=== PATIENT | male | born 1940 | race Caucasian/White ===

== ENCOUNTER → 2018-10-25 09:19 | Outpatient (CLI) | payer MEDICARE, BC, SELFPAY ==
--- NOTE | 2018-10-25 09:26 | US_ITS ---
US abdomen complete HISTORY: ITS.REASON: CIRRHOSIS ORDERING PHYSICIAN: Barbra Chauhan PATIENT AGE: 78 years COMPARISON: None FINDINGS: PANCREAS:Unremarkable. No obvious mass or abnormal fluid collection. No ductal dilatation LIVER:There is heterogeneous echogenicity of the liver with irregularity of the hepatic margin consistent with cirrhosis. There is appropriate directional blood flow within the portal vein. The portal vein however is enlarged measuring up to 17 mm in diameter. There is a filling defect within the posterior aspect of the portal vein consistent with partial thrombosis of the portal vein.. RIGHT KIDNEY:Cortical thinning. Normal size and echogenicity. No hydronephrosis LEFT KIDNEY:Unremarkable.. No hydronephrosis. Normal size and echogenicity. GALLBLADDER: Gallbladder is distended containing stones and sludge. No gallbladder wall thickening or pericholecystic fluid is evident. AORTA:There is a 4 cm abdominal aortic aneurysm. SPLEEN:Enlarged at 15 cm ASCITES:None demonstrated. IMPRESSION: 1. Cirrhosis. 2. 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 3. Cyst in the gallbladder with cholelithiasis.
== END ==
PROVIDERS: PCP Family Medicine; Visit Provider Nurse Practitioner Acute Care
DX: K74.60 Unspecified cirrhosis of liver (principal)
CPT/HCPCS: 76700

== ENCOUNTER → 2019-11-23 14:44 | Outpatient (CLI) | payer MEDICARE, BC, SELFPAY ==
--- NOTE | 2019-11-23 14:59 | US_ITS ---
PROCEDURE: US TESTICULAR CLINICAL INDICATION: Right-sided testicular pain, recent hernia surgery COMPARISON: No exams were available for comparison FINDINGS: Right testicle is 4.7 x 2.4 x 2.4 cm. There is homogeneous echogenicity. Blood flow is present. No testicular mass apparent. There is irregular area of decreased echogenicity in the epididymal measuring 13 mm. There is a large right hydrocele. There is history of prior surgical removal of the left testicle. IMPRESSION: Large right hydrocele. Small complex epididymal cyst on the right. Unremarkable appearance of the right testicle Dictated by: Tim Baldwin MD 11/24/2019 16:48 Electronically signed by Tim Baldwin MD in [place] 11/24/2019 16:48
== END ==
PROVIDERS: PCP Family Medicine; Visit Provider Urology
DX: N50.811 Right testicular pain (principal)
CPT/HCPCS: 76870

== ENCOUNTER → 2020-03-16 11:50 | Outpatient (CLI) | payer MEDICARE, BC, SELFPAY ==
[2020-03-16 11:56] LABS: Adenovirus,PCR Not Detected (NotDetected); Bordetella Pertussis Not Detected (NotDetected); Chlamydophila Pneumoniae, PCR Not Detected (NotDetected); Coronavirus 19, PCR Not Detected (NotDetected); Coronavirus 229E Not Detected (NotDetected); Coronavirus NL63 Not Detected (NotDetected); Coronavirus OC43 Not Detected (NotDetected); Coronovirus HKU1,PCR Not Detected (NotDetected); Human Metapneumovirus Not Detected (NotDetected); Influenza A, PCR Not Detected (NotDetected); Influenza AH1, 2009 Not Detected (NotDetected); Influenza AH1, PCR Not Detected (NotDetected); Influenza AH3,PCR Not Detected (NotDetected); Influenza B, PCR Not Detected (NotDetected); Mycoplasma Pneumoniae, PCR Not Detected (NotDected); Parainfluenza 1, PCR Not Detected (NotDetected); Parainfluenza 2, PCR Not Detected (NotDetected); Parainfluenza 3, PCR Not Detected (NotDetected); Parainfluenza 4, PCR Not Detected (NotDetected); Respiratory Syncytial Virus Not Detected (NotDetected); Rhinovirus/Enterovirus Not Detected (NotDetected)
== END ==
PROVIDERS: Visit Provider Family Medicine
DX: Z03.818 Encounter for observation for suspected exposure to other biological agents ruled out (principal)
CPT/HCPCS: 87581; 87633; 87798; U0003

== ENCOUNTER → 2021-05-02 11:42 | Outpatient (CLI) | payer MEDICARE, BC, SELFPAY ==
--- NOTE | 2021-05-02 11:46 | CA_ITS ---
APPROVED REPORT EXAM: Comprehensive 2D, Doppler, and color-flow Echocardiogram Studio Operator: rTacy Curran CRT Ht: 5 ft 7 in Wt: 158lbs BSA: 1.83 BP: 142/82 mmHg Indications: Abnormal ECG, Shortness of Breath, Hyperlipidemia, Hypertension/HDD 2D Dimensions LVOT 2.08 cm (M/F) 1.5-2.5 LA Volume 54.50 mL LA Volume Index 29.80 mL/m2 (M/F) 16-34 M-Mode Dimensions RVDd 2.79 cm (0.9-2.6) LA Diam 3.92 cm (1.9-4.0) LVDd 6.25 cm (3.5-5.7) Ao Diam 4.28 cm (2.0-3.7) LVDs 5.47 cm (3.5-5.7) IVSd 1.57 cm (0.6-1.1) PWd 0.68 cm (0.6-1.1) EF (Teich) 26.30% FS 12.50% EDV (Teich) 197.60 mL TAPSE 2.53 (<1.7) ESV (Teich) 145.60 mL LV Diastology E Decel Time 293.00 (160-240 msec) E/A Ratio 0.98 MED E' 2.80 (< 7 cm/sec) MED A' 10.20 cm/s E'/MED E' Ratio 33.32 (>14) LAT E' 6.70 (<10 cm/sec) LAT A' 9.30 cm/s E/LAT E' Ratio 13.93 (>14) Aortic Valve LVOT Max 158.00 (70-110 cm/s) LVOT VTI 38.56 cm AoV Peak Shahbaz. 195.00 (50-130 cm/s) AI PHT 844.00 ms AO Peak GR. 15.20 mmHg AO Mean GR. 7.20 (<5 mmHg) AO VTI 41.63 (18-25 cm) CIELO (VTI) 3.15 (2.5-4.5 cm2) Mitral Valve MV A Velocity 95.00 (40-130 cm/s) E/A Ratio 0.98 MV Decel. Time 293.00 (160-240 ms) Pulmonary Valve PV Peak Velocity 158.00 (50-150 cm/s) Tricuspid Valve TR P. Velocity 275.00 cm/s RAP Estimate 10.00 mmHg RVSP 40.30 mmHg Left Ventricle Left atrium is moderately enlarged, left ventricle is mildly dilated, severe reduced left ventricular systolic function, visually estimated ejection fraction approximately 25%, there is marked hypokinesis involving the inferior wall, inferolateral and posterolateral wall. Diastolic parameters are inconclusive. Right Ventricle Right atrium and right ventricle are normal size and contractility. Aortic Valve Aortic valve is thickened and calcified without aortic stenosis, there is mild aortic insufficiency. Mitral Valve Mitral valve leaflets are minimally thickened, there is mild mitral regurgitation. Tricuspid Valve Tricuspid grossly normal, there is mild tricuspid regurgitation, calculated right ventricular systolic pressure is 40 mmHg. Pulmonic Valve Pulmonic valve is poorly visualized. Great Vessels Aortic root is normal size. Pericardium No significant pericardial effusion noted. Conclusion 1. Moderately enlarged left atrium, dilated left ventricle, severe reduced left ventricular systolic function, visually estimated ejection fraction 25% with multiple segmental wall motion abnormality described above, diastolic parameters are inconclusive. 2. Mild aortic, mild mitral and tricuspid regurgitation. 3. No significant pericardial effusion noted. Electronically signed by : Carson Roberson MD 05/03/2021 13:40:54
--- NOTE | 2021-05-02 11:48 | NM_ITS ---
APPROVED REPORT Exam: Nuclear Stress Test Indication: Abnormal EKG, SOB, Palpitations, HTN, High cholesterol Patient Location: Outpatient Stress Tech: Sasha Rivera [place] Tech:Jyotsna Hardwick ARRT RT(R)(N) Ht: 5 ft 7 in Wt: 160 lbs HR: 78 bpm BP: 130/73 mmHg BSA: 1.84 m2 BMI: 25.0 History: Abnormal EKG, SOB, Palpitations, HTN, High cholesterol Procedure: Patient received a 0.4 mg of intravenous Lexiscan, resting heart rate 78 bpm, resting blood pressure 130/73 mmHg, with Lexiscan maximum heart rate achived was 75 bpm which is Than 85 % of the maximum predicted heart rate and blood pressure was 144/76 mmHg. With Lexiscan, patient denied any complaint of chest pain. Electrocardiogram Resting electrocardiogram shows sinus rhythm with Lexiscan there is less than 1.[address] segment depression noted from the baseline EKG. The EKG portion of the Lexiscan is nondiagnostic. Cardiac Stress and Resting SPECT Images: Cardiac Stress and Resting SPECT images were obtained using technetium 99m Myoview 32.6 mCi stress and 10.27 mCi at rest. Gated SPECT for analysis of segmental wall motion and calculation of the ejection fraction also done, prone images were also obtained. Cardiac stress and resting SPECT images show severely reduced tracer activity in the large area involving the inferior inferolateral and posterolateral wall mostly in a fixed pattern consistent with area of extensive myocardial scarring with minimal vero-infarct ischemia. Computer derived ejection fraction is 28% with marked hypokinesis involving the inferior inferolateral and posterolateral wall. Right ventricle mildly enlarged with normal contractility. Conclusion: 1. The EKG portion of the Lexiscan is nondiagnostic. 2. Scintigraphic evidence of extensive myocardial scarring involving the inferior inferolateral and posterolateral wall with minimal vero-infarct ischemia. Computer derived ejection fraction is 28% with segmental wall motion abnormality described above, right ventricle is mildly enlarged with normal contractility, left ventricle is dilated both stress and rest. 3. Abnormal Lexiscan Myoview study. Electronically signed by : Carson Roberson MD 05/03/2021 11:11:43
--- NOTE | 2021-05-02 14:22 | CA_ITS ---
APPROVED REPORT Exam: Pharmacologic Technologist: Sasha Rivera, Ht: 5 ft 7 in Wt: 158 lbs BSA: 1.83 m2 HR: 78 bpm BP: 130/73 mmHg Medical History Medications: Allopurinol,,,,, Carvedilol,,,,, Furosemide,,,,, Ferrous-sulfate,,,,, Stress Test Details Test: LEXISCAN HR Resting HR: 75 bpm Max Heart Rate (APMHR): 138 bpm Max HR Achieved: 88 bpm Target HR (85% APMHR): 117 bpm % of APMHR: 63 Recovery HR: 78 bpm BP Resting BP: 130/73 mmHg Max BP: 150/70 mmHg Recovery BP: 144.0/66.0 mmHg ECG Resting ECG: NSR, 1degree AVB, freq PVC's in bigeminal pattern, poor R wave progression Clinical Exercise duration: 04:01 min Highest Stage Achieved: Stress ECG Conclusion Symptoms: None Arrhythmais/Ectopy: Frequent PVC's, Occ V.couplet, rare V. triplet. ST-T Changes: No significant changes. Conclusion: Non-dx Lexiscan stress. Myoview images reported separately. Electronically signed by : Carson Roberson MD 05/02/2021 14:57:35
--- NOTE | 2021-05-02 16:05 | HMH.ITSHM ---
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 []VITAMINS FUROSEMIDE IRON CARVEDILOL ALLOPURINOL
== END ==
PROVIDERS: PCP Family Medicine; Visit Provider Internal Medicine Cardiovascular Disease
DX: E78.5 Hyperlipidemia, unspecified (principal); I10 Essential (primary) hypertension; I49.3 Ventricular premature depolarization; I49.9 Cardiac arrhythmia, unspecified; R00.2 Palpitations; R60.0 Localized edema; R94.31 Abnormal electrocardiogram [ECG] [EKG]; Z87.19 Personal history of other diseases of the digestive system; Z87.891 Personal history of nicotine dependence
CPT/HCPCS: 78452; 93017; 93306; A9502; J2785

== ENCOUNTER → 2021-05-09 13:18 | Outpatient (CLI) | payer MEDICARE, BC, SELFPAY ==
[2021-05-09 13:50] LABS: Basophils % 0.5 % (0.1-2.0); Eosinophils # 0.3 K/mm3 (0.0-0.4); Eosinophils % 7.2 % (0.1-12.0); Hemoglobin 11.7 g/dL (14.1-18.0); Lymphocytes % 20.9 % (10-50); Mean Corpuscular HGB Conc 32.6 g/dL (31.8-35.4); Mean Corpuscular Hemoglobin 34.7 pg (27.0-31.2); Mean Corpuscular Volume 106.4 fl (80-94); Mean Platelet Volume 9.8 fl (7.4-10.4); Monocytes # 0.2 K/mm3 (0.1-1.0); Monocytes % 4.5 % (1.7-9.3); Neutrophils # 3.2 K/mm3 (1.8-7.8); Neutrophils % 66.9 % (37.0-80.0); Platelet Count 71 K/mm3 (142-424); Red Blood Count 3.38 M/mm3 (4.60-6.20); Red Cell Distribution Width 17.5 % (11.5-17.5); White Blood Count 4.8 K/mm3 (4.8-10.8)
[2021-05-09 13:57] LABS: INR 1.11 (0.9-1.1)
[2021-05-09 14:20] LABS: Alanine Aminotransferase 13 U/L (12-78); Albumin Level 3.6 g/dl (3.5-5.0); Alkaline Phosphatase 79 U/L (38-126); Anion Gap 11.9 mEq/L (5-15); Aspartate Amino Transferase 26 U/L (17-59); Bilirubin,Direct 0.4 mg/dl (0.0-0.4); Bilirubin,Total 1.4 mg/dl (0.2-1.3); Blood Urea Nitrogen 41 mg/dl (9-20); Calcium 8.7 mg/dl (8.4-10.2); Carbon Dioxide 22 mmol/L (22.0-30.0); Chloride 111 mmol/L (98-107); Chol/HDL Ratio 2.7 (1-3.5); Cholesterol 139 mg/dl (140-200); Estimated Glomerular Filt Rate 58 ml/min (>60); GFR (African American) 70 ML/MIN (>60); Glucose 87 mg/dl (74-100); HDL Cholesterol 51 mg/dl (40-60); Potassium 4.9 mmoL/L (3.5-5.1); Sodium 140 mmol/L (136-145); Total Protein,Serum 6.8 g/dl (6.3-8.2); Triglycerides 78 mg/dl (30-150); VLDL Cholesterol 16 mg/dL (0-40)
[2021-05-09 14:31] LABS: Direct LDL Cholesterol 62.36 mg/dL (100-129)
[2021-05-09 14:32] LABS: Free T4 (Free Thyroxine) 1.51 ng/dl (0.78-2.19)
[2021-05-09 14:50] LABS: Thyroid Stimulating Hormone 2.07 uIU/mL (0.465-4.68)
== END ==
PROVIDERS: Visit Provider Internal Medicine Cardiovascular Disease
DX: E78.5 Hyperlipidemia, unspecified (principal); I49.3 Ventricular premature depolarization; I49.9 Cardiac arrhythmia, unspecified; R00.2 Palpitations; R60.0 Localized edema; R94.31 Abnormal electrocardiogram [ECG] [EKG]; Z87.19 Personal history of other diseases of the digestive system; Z87.891 Personal history of nicotine dependence; I50.20 Unspecified systolic (congestive) heart failure; R93.1 Abnormal findings on diagnostic imaging of heart and coronary circulation; R94.30 Abnormal result of cardiovascular function study, unspecified; I11.0 Hypertensive heart disease with heart failure
CPT/HCPCS: 36415; 80048; 80061; 80076; 84439; 84443; 85025; 85610

== ENCOUNTER 2021-05-20 08:22 | Day surgery (SDC) | payer MEDICARE, BC, SELFPAY ==
[2021-05-20] VITALS (9 sets, daily range): BP systolic 106–156; BP diastolic 55–91; PULSE 62–81; RESP 17–20; TEMP 36.7; O2SAT 91–98; BMI 24.9
--- NOTE | 2021-05-20 07:11 | IR_ITS ---
APPROVED REPORT Patient Location: Outpatient PROCEDURES Left heart catheterization Left ventriculogram Selective coronary angiogram INDICATION Abnormal Myoview, Systolic congestive heart failure ejection fraction 28%, Cardiomyopathy, Informed consent was obtained prior to the procedure. COMPLICATIONS NONE Estimated Blood Loss: LESS THAN 10 ML TECHNIQUE One percent lidocaine used to anesthetize the right anterior aspect of the wrist. The right radial artery was accessed via the Seldinger technique. A 6 Spanish sheath was placed in the right radial artery. 2.5 mg of verapamil, 800 mcg of nitroglycerin, 1mg Lidocaine and 5000 U Heparin were given through the arterial sheath. The trap catheter was also used to perform left heart catheterization, left ventriculogram and selective coronary angiogram. At the end of the procedure the sheath was removed good hemostasis was achieved using Traclet band, patient was transferred to the postop holding area in stable condition. ANGIOGRAPHIC RESULTS The left main artery Normal The left anterior descending artery Proximally normal with a mid vessel telescopic 30% stenosis The circumflex artery Nondominant with mild luminal irregularities The right coronary artery Large dominant with mild diffuse 10% luminal irregularities The YU ventriculogram reveals Dilated global hypokinesis ejection fraction 25% The left ventricular end-diastolic pressure 20 mmHg IMPRESSION Mild to moderate nonflow limiting coronary disease involving mid LAD Multiple PVCs in the setting of severe LV dysfunction PLAN 1. Medical management for coronary artery disease 2. Recommend EP evaluation and possible EP study to consider ablating the numerous PVCs which may be contributing to the cardiomyopathy. 3. Consider LifeVest while awaiting EP evaluation and EP study 4. Standard therapy for systolic heart failure Electronically signed by : Elvis Fairbanks MD 05/20/2021 11:29:09
[2021-05-20 09:07] LABS: Coronavirus 19, PCR Not Detected (NotDetected); Influenza A, PCR Not Detected (NotDetected); Influenza B, PCR Not Detected (NotDetected)
[2021-05-20 09:12] LABS: Basophils # 0.1 K/mm3 (0-0.2); Basophils % 0.9 % (0.1-2.0); Eosinophils # 0.4 K/mm3 (0.0-0.4); Eosinophils % 6.5 % (0.1-12.0); Hematocrit 39.2 % (42.0-52.0); Hemoglobin 12.4 g/dL (14.1-18.0); Lymphocytes # 1.5 K/mm3 (0.7-4.5); Lymphocytes % 23.8 % (10-50); Mean Corpuscular HGB Conc 31.6 g/dL (31.8-35.4); Mean Platelet Volume 10.7 fl (7.4-10.4); Monocytes # 0.3 K/mm3 (0.1-1.0); Monocytes % 4.9 % (1.7-9.3); Neutrophils # 4.1 K/mm3 (1.8-7.8); Neutrophils % 63.9 % (37.0-80.0); Platelet Count 100 K/mm3 (142-424); Red Blood Count 3.53 M/mm3 (4.60-6.20); White Blood Count 6.4 K/mm3 (4.8-10.8)
[2021-05-20 09:15] LABS: Chloride 111 mmol/L (98-107); Potassium 4.4 mmoL/L (3.5-5.1); Sodium 140 mmol/L (136-145)
[2021-05-20 09:18] LABS: Blood Urea Nitrogen 38 mg/dl (9-20); Creatinine Clearance Estimated 45 mL/min (50-200); Estimated Glomerular Filt Rate 53 ml/min (>60); GFR (African American) 64 ML/MIN (>60)
[2021-05-20 09:19] LABS: Anion Gap 12.4 mEq/L (5-15); Calcium 9.1 mg/dl (8.4-10.2); Carbon Dioxide 21 mmol/L (22.0-30.0); Glucose 94 mg/dl (74-100)
== END 2021-05-20 15:04 | disposition home or self-care (01) ==
LOC: CATHLAB 08:23
PROVIDERS: PCP Family Medicine; Visit Provider Internal Medicine
DX: E78.5 Hyperlipidemia, unspecified (principal); I11.0 Hypertensive heart disease with heart failure; I50.21 Acute systolic (congestive) heart failure; R00.2 Palpitations; R93.1 Abnormal findings on diagnostic imaging of heart and coronary circulation; R94.30 Abnormal result of cardiovascular function study, unspecified; R94.31 Abnormal electrocardiogram [ECG] [EKG]; K74.69 Other cirrhosis of liver; Z82.49 Family history of ischemic heart disease and other diseases of the circulatory system; Z79.899 Other long term (current) drug therapy; Z20.822 Contact with and (suspected) exposure to COVID-19
CPT/HCPCS: 80048; 85025; 93458; 99152; C1725; C1769; J1644; Q9967; U0003

== ENCOUNTER → 2021-07-12 09:02 | Outpatient (CLI) | payer MEDICARE, BC, SELFPAY ==
--- NOTE | 2021-07-12 09:04 | CA_ITS ---
APPROVED REPORT EXAM: Comprehensive 2D, Doppler, and color-flow Echocardiogram Certified Medical Coder: Eliz Perez RDCS Ht: 5 ft 7 in Wt: 156lbs BSA: 1.82 BP: 5/7 mmHg Indications: EF CHECK M-Mode Dimensions RVDd 2.93 cm (0.9-2.6) LVDd 6.90 cm (3.5-5.7) LVDs 6.03 cm (3.5-5.7) IVSd 0.70 cm (0.6-1.1) PWd 0.63 cm (0.6-1.1) EF (Teich) 26.40% FS 12.60% EDV (Teich) 247.30 mL ESV (Teich) 182.10 mL Conclusion 1. Limited echocardiogram was obtained to evaluate left ventricular systolic function. 2. Left ventricle is normal size, mild concentric left ventricular hypertrophy, visually estimated ejection fraction is approximately 35 to 40%. Left ventricle is globally hypokinetic. 3. No significant pericardial effusion noted. Electronically signed by : Carson Roberson MD 07/12/2021 11:58:27
== END ==
PROVIDERS: PCP Family Medicine; Visit Provider Internal Medicine Cardiovascular Disease
DX: I25.10 Atherosclerotic heart disease of native coronary artery without angina pectoris (principal); I50.20 Unspecified systolic (congestive) heart failure
CPT/HCPCS: 93308

== ENCOUNTER → 2021-09-06 12:06 | Outpatient (CLI) | payer MEDICARE, BC, SELFPAY ==
--- NOTE | 2021-09-06 12:28 | XR_ITS ---
PROCEDURE: XR CHEST PORTABLE CLINICAL HISTORY: COVID TESTING COMPARISON: CR CXR CHEST(2 VIEWS-NOT PORTABLE) from 07/30/[address] ABD W/ CONTRAST from 10/07/2016 FINDINGS: The cardiomediastinal silhouette and pulmonary vascularity are within normal limits. The lungs are clear without infiltrates, suspicious nodules, or pleural effusions. There are degenerative changes of the shoulders. And irregular area of increased density is present the in the left upper quadrant medially etiology indeterminate. IMPRESSION: No acute findings. Dictated by: Tim Baldwin MD 09/06/2021 13:31 Tim Baldwin MD in [place] 09/06/2021 13:31
[2021-09-06 13:39] LABS: Basophils % 0.6 % (0.1-2.0); Eosinophils # 0.2 K/mm3 (0.0-0.4); Eosinophils % 4.2 % (0.1-12.0); Hematocrit 40.7 % (42.0-52.0); Hemoglobin 12.7 g/dL (14.1-18.0); Lymphocytes # 0.8 K/mm3 (0.7-4.5); Lymphocytes % 19.5 % (10-50); Mean Corpuscular HGB Conc 31.2 g/dL (31.8-35.4); Mean Corpuscular Hemoglobin 33.4 pg (27.0-31.2); Mean Corpuscular Volume 107.1 fl (80-94); Mean Platelet Volume 9.4 fl (7.4-10.4); Monocytes # 0.3 K/mm3 (0.1-1.0); Monocytes % 6.3 % (1.7-9.3); Neutrophils % 69.4 % (37.0-80.0); Platelet Count 104 K/mm3 (142-424); Red Cell Distribution Width 16.3 % (11.5-17.5); White Blood Count 4.3 K/mm3 (4.8-10.8)
== END ==
PROVIDERS: PCP Family Medicine; Visit Provider Nurse Practitioner
DX: U07.1 COVID-19 (principal)
CPT/HCPCS: 36415; 71045; 85025; 87275; 87276; C9803; U0003; U0005

== ENCOUNTER → 2021-11-12 10:23 | Outpatient (CLI) | payer MEDICARE, BC, SELFPAY ==
--- NOTE | 2021-11-12 | CA_ITS ---
APPROVED REPORT EXAM: Comprehensive 2D, Doppler, and color-flow Echocardiogram Rn Prior Authorization: Masha Flores, RCS, RVS Ht: 5 ft 7 in Wt: 162lbs BSA: 1.85 BP: 123/82 mmHg Indications: Dilated CM last EF35-40%-07/18, CAD, SOA,HTN 2D Dimensions IVSd 1.03 cm M: 0.6-1.2 LVEF (Visual) 52.40 % PWd 0.93 cm M: 0.6 - 1.2 LA Volume 73.30 mL LVDd 6.63 cm M: 4.2 - 5.9 LA Volume Index 39.62 mL/m2 (M/F) 16-34 LVDs 4.80 cm M: 2.5 - 4.0 Aortic Root 4.04 cm M: 3.1 - 3.7 Left Atrium 5.43 cm M: 3.0 - 4.0 LVOT 2.08 cm (M/F) 1.5-2.5 M-Mode Dimensions RVDd 3.26 cm (0.9-2.6) LA Diam 4.47 cm (1.9-4.0) LVDd 6.74 cm (3.5-5.7) Ao Diam 3.96 cm (2.0-3.7) LVDs 5.15 cm (3.5-5.7) IVSd 1.01 cm (0.6-1.1) PWd 1.01 cm (0.6-1.1) EF (Teich) 46.00% EPSs 1.86 cm FS 23.60% EDV (Teich) 234.50 mL TAPSE 2.29 (<1.7) ESV (Teich) 126.60 mL LV Diastology E Decel Time 250.00 (160-240 msec) E/A Ratio 0.69 MED E' 3.70 (< 7 cm/sec) MED A' 7.70 cm/s E'/MED E' Ratio 16.68 (>14) LAT E' 7.60 (<10 cm/sec) LAT A' 10.80 cm/s E/LAT E' Ratio 8.12 (>14) Aortic Valve LVOT Max 79.00 (70-110 cm/s) LVOT VTI 19.22 cm AoV Peak Shahbaz. 179.00 (50-130 cm/s) AI PHT 844.00 ms AO Peak GR. 12.80 mmHg AO Mean GR. 7.40 (<5 mmHg) AO VTI 41.30 (18-25 cm) CIELO (VTI) 1.58 (2.5-4.5 cm2) Mitral Valve MV A Velocity 89.00 (40-130 cm/s) E/A Ratio 0.69 MV Decel. Time 250.00 (160-240 ms) MV Mean Gr. 1.40 (<2mmHg) MV PHT 63.00 ms Pulmonary Valve PV Peak Velocity 124.00 (50-150 cm/s) Tricuspid Valve TR P. Velocity 265.00 cm/s RAP Estimate 10.00 mmHg RVSP 38.00 mmHg Left Ventricle Left atrium is mildly enlarged, left ventricle is normal size, mild concentric left ventricular hypertrophy, visually estimated ejection fraction approximately 35 to 40%, left ventricle appears to be globally hypokinetic. Superimposed segmental wall motion abnormalities cannot be excluded. Grade 1 diastolic dysfunction seen without tissue Doppler evidence of raise left atrial pressure. Right Ventricle Right atrium and right ventricular normal size and contractility. Aortic Valve Aortic valve is thickened and calcified without aortic stenosis, there is moderate aortic insufficiency. Mitral Valve Mitral valve is minimally thickened, there is mild mitral regurgitation. Tricuspid Valve Tricuspid grossly normal, there is mild tricuspid regurgitation, calculated right ventricular systolic pressure 38 mmHg. Pulmonic Valve Pulmonic valve is poorly visualized. Great Vessels Aortic root is normal size. Inferior vena cava is normal size with normal inspiratory collapse. Pericardium No significant pericardial effusion. Conclusion 1. Mildly enlarged left atrium, normal left ventricular size, mild concentric left ventricular hypertrophy, visually estimated ejection fraction 35 to 40% left ventricle is globally hypokinetic, superimposed segmental wall motion abnormality cannot be excluded. Grade 1 diastolic dysfunction without tissue Doppler evidence of left atrial pressure. 2. Thickened and calcified aortic valve without Doppler evidence of aortic stenosis, there is moderate aortic insufficiency. 3. Mild mitral and tricuspid regurgitation, calculated right ventricular systolic pressure 38 mmHg. 4. Inferior vena cava normal size with normal inspiratory collapse. Electronically signed by
== END ==
PROVIDERS: PCP Family Medicine; Visit Provider Internal Medicine Cardiovascular Disease
DX: I50.20 Unspecified systolic (congestive) heart failure (principal); R06.02 Shortness of breath
CPT/HCPCS: 93306

== ENCOUNTER → 2021-11-18 09:50 | Outpatient (CLI) | payer MEDICARE, BC, SELFPAY | PROVIDERS: PCP Family Medicine; Visit Provider Nurse Practitioner | DX: Z20.822 Contact with and (suspected) exposure to COVID-19 (principal) | CPT/HCPCS: C9803; U0003; U0005 ==

== ENCOUNTER → 2021-11-28 09:41 | Outpatient (CLI) | payer MEDICARE, BC, SELFPAY ==
[2021-11-28 10:27] LABS: Basophils # 0.1 K/mm3 (0-0.2); Basophils % 1.6 % (0.1-2.0); Eosinophils # 0.1 K/mm3 (0.0-0.4); Eosinophils % 4.8 % (0.1-12.0); Hematocrit 39.9 % (42.0-52.0); Hemoglobin 12.4 g/dL (14.1-18.0); Lymphocytes # 0.5 K/mm3 (0.7-4.5); Lymphocytes % 16.7 % (10-50); Mean Platelet Volume 10.1 fl (7.4-10.4); Monocytes # 0.2 K/mm3 (0.1-1.0); Monocytes % 7.4 % (1.7-9.3); Neutrophils % 69.6 % (37.0-80.0); Platelet Count 77 K/mm3 (142-424); Red Blood Count 3.53 M/mm3 (4.60-6.20); Red Cell Distribution Width 17.5 % (11.5-17.5); White Blood Count 2.9 K/mm3 (4.8-10.8)
[2021-11-28 11:06] LABS: Chloride 104 mmol/L (98-107)
[2021-11-28 11:07] LABS: Potassium 3.7 mmoL/L (3.5-5.1); Sodium 134 mmol/L (136-145)
[2021-11-28 11:09] LABS: Alanine Aminotransferase 18 U/L (12-78); Albumin Level 3.2 g/dl (3.5-5.0); Alkaline Phosphatase 87 U/L (38-126); Anion Gap 9.7 mEq/L (5-15); Aspartate Amino Transferase 33 U/L (17-59); Bilirubin,Total 1.7 mg/dl (0.2-1.3); Blood Urea Nitrogen 19 mg/dl (9-20); Carbon Dioxide 24 mmol/L (22.0-30.0); Estimated Glomerular Filt Rate 72 ml/min (>60); GFR (African American) 87 ML/MIN (>60); Globulin 3.4 g/dL (1.3-3.2); Total Protein,Serum 6.6 g/dl (6.3-8.2)
[2021-11-28 11:10] LABS: Albumin/Globulin Ratio 0.9 (1.1-1.8); Calcium 7.9 mg/dl (8.4-10.2); Glucose 117 mg/dl (74-100)
== END ==
PROVIDERS: Visit Provider Family Medicine
DX: K52.9 Noninfective gastroenteritis and colitis, unspecified (principal)
CPT/HCPCS: 36415; 80053; 85025

== ENCOUNTER → 2022-06-06 14:05 | Outpatient (CLI) | payer MEDICARE, BC, SELFPAY ==
[2022-06-06 15:19] LABS: Anion Gap 10.5 mEq/L (5-15); Blood Urea Nitrogen 31 mg/dl (9-20); Calcium 8.8 mg/dl (8.4-10.2); Carbon Dioxide 25 mmol/L (22.0-30.0); Chloride 108 mmol/L (98-107); Estimated Glomerular Filt Rate 58 ml/min (>60); GFR (African American) 70 ML/MIN (>60); Glucose 87 mg/dl (74-100); Potassium 4.5 mmoL/L (3.5-5.1); Sodium 139 mmol/L (136-145)
[2022-06-06 15:27] LABS: NT Pro Brain Natriuretic Pep. 4030 pg/mL (0-450)
[2022-06-06 15:33] LABS: Basophils % 0.5 % (0.1-2.0); Eosinophils # 0.2 K/mm3 (0.0-0.4); Eosinophils % 3.3 % (0.1-12.0); Hematocrit 40.6 % (42.0-52.0); Hemoglobin 11.7 g/dL (14.1-18.0); Lymphocytes % 19.9 % (10-50); Mean Corpuscular HGB Conc 28.9 g/dL (31.8-35.4); Mean Corpuscular Hemoglobin 33.3 pg (27.0-31.2); Mean Corpuscular Volume 115.2 fl (80-94); Mean Platelet Volume 8.9 fl (7.4-10.4); Monocytes # 0.4 K/mm3 (0.1-1.0); Monocytes % 7.2 % (1.7-9.3); Neutrophils # 3.6 K/mm3 (1.8-7.8); Platelet Count 95 K/mm3 (142-424); Red Blood Count 3.52 M/mm3 (4.60-6.20); Red Cell Distribution Width 16.2 % (11.5-17.5); White Blood Count 5.2 K/mm3 (4.8-10.8)
== END ==
PROVIDERS: PCP Family Medicine; Visit Provider Internal Medicine Cardiovascular Disease
DX: E78.2 Mixed hyperlipidemia (principal); I25.10 Atherosclerotic heart disease of native coronary artery without angina pectoris; I50.20 Unspecified systolic (congestive) heart failure; I63.9 Cerebral infarction, unspecified; R06.02 Shortness of breath; R94.31 Abnormal electrocardiogram [ECG] [EKG]; I11.0 Hypertensive heart disease with heart failure
CPT/HCPCS: 36415; 80048; 83880; 85025

== ENCOUNTER → 2022-06-26 10:45 | Outpatient (CLI) | payer MEDICARE, BC, SELFPAY ==
--- NOTE | 2022-06-26 10:46 | CA_ITS ---
APPROVED REPORT EXAM: Comprehensive 2D, Doppler, and color-flow Echocardiogram Commutator V Ring Assembler: Masha Flores, RCS, RVS Ht: 5 ft 7 in Wt: 157lbs BSA: 1.82 BP: 143/81 mmHg Rhythm: Irregular Indications: Dilated CMlast EF 35-40%, CHF, SOB, HTN, HLD,Ex-smoker, Palpitaitons 2D Dimensions IVSd 1.06 cm LVEF (Visual) 35.00 % PWd 0.78 cm LA Volume 139.80 mL LVDd 6.68 cm LA Volume Index 76.80 mL/m2 (M/F) 16-34 LVDs 5.42 cm Aortic Root 3.91 cm Left Atrium 3.44 cm LVOT 2.04 cm (M/F) 1.5-2.5 M-Mode Dimensions RVDd 3.34 cm (0.9-2.6) LA Diam 4.90 cm (1.9-4.0) LVDd 6.09 cm (3.5-5.7) Ao Diam 3.75 cm (2.0-3.7) LVDs 5.04 cm (3.5-5.7) IVSd 1.34 cm (0.6-1.1) PWd 1.04 cm (0.6-1.1) EF (Teich) 35.30% EPSs 1.58 cm FS 17.20% EDV (Teich) 186.20 mL TAPSE 2.20 (<1.7) ESV (Teich) 120.50 mL LV Diastology E Decel Time 333.00 (160-240 msec) E/A Ratio 0.88 MED E' 3.30 (< 7 cm/sec) MED A' 6.70 cm/s E'/MED E' Ratio 22.09 (>14) Aortic Valve LVOT Max 70.00 (70-110 cm/s) LVOT VTI 15.51 cm AoV Peak Shahbaz. 210.00 (50-130 cm/s) AI PHT 583.00 ms AO Peak GR. 17.90 mmHg AO Mean GR. 8.30 (<5 mmHg) AO VTI 44.63 (18-25 cm) CIELO (VTI) 1.14 (2.5-4.5 cm2) Mitral Valve MV A Velocity 83.00 (40-130 cm/s) E/A Ratio 0.88 MV Decel. Time 333.00 (160-240 ms) Pulmonary Valve PV Peak Velocity 105.00 (50-150 cm/s) DC End VMAX 160.00 cm/s Tricuspid Valve TR P. Velocity 399.00 cm/s RAP Estimate 10.00 mmHg RVSP 73.80 mmHg Left Ventricle Left atrium is mildly enlarged, left ventricle is mildly dilated, reduced left ventricular systolic function, estimated ejection fraction 30 to 35% left ventricle is globally hypokinetic, grade 1 diastolic dysfunction seen with tissue Doppler evidence of a left atrial pressure. Right Ventricle Right atrium and right ventricle are mildly enlarged with normal contractility. Aortic Valve Aortic valve is thickened and calcified without aortic stenosis, there is mild aortic insufficiency. Mitral Valve Mitral valve leaflets are minimally thickened, there is moderate mitral regurgitation. Tricuspid Valve Tricuspid valve is grossly normal, there is moderate tricuspid regurgitation, calculated right ventricular systolic pressure is 73 mmHg. Pulmonic Valve Pulmonic valve is poorly visualized. Great Vessels Aortic root is normal size. Inferior vena cava is dilated without significant inspiratory collapse. Pericardium No significant pericardial effusion noted. Conclusion 1. Biatrial enlargement, dilated left ventricle, estimated ejection fraction 30 to 35% left ventricle is globally hypokinetic. Grade 1 diastolic dysfunction seen with tissue Doppler evidence of raise left atrial pressure. 2. Mildly enlarged right ventricle with normal contractility. 3. Thickened and calcified aortic valve without aortic stenosis there is mild aortic insufficiency. 4. Moderate mitral and tricuspid regurgitation, calculated right ventricular systolic pressure is 73 mmHg. 5. No significant pericardial effusion noted. 6. Inferior vena cava is mildly dilated without significant inspiratory collapse. Electronically signed by : Carson Roberson MD 06/27/2022 14:33:01
== END ==
PROVIDERS: PCP Family Medicine; Visit Provider Physician Assistant
DX: E78.2 Mixed hyperlipidemia (principal); I11.0 Hypertensive heart disease with heart failure; I25.10 Atherosclerotic heart disease of native coronary artery without angina pectoris; I50.20 Unspecified systolic (congestive) heart failure; R00.2 Palpitations; R06.02 Shortness of breath; R94.31 Abnormal electrocardiogram [ECG] [EKG]; Z87.891 Personal history of nicotine dependence
CPT/HCPCS: 93306

== ENCOUNTER → 2022-06-30 14:05 | Outpatient (CLI) | payer MEDICARE, BC, SELFPAY ==
[2022-06-30 15:51] LABS: Chloride 105 mmol/L (98-107); Potassium 4.2 mmoL/L (3.5-5.1); Sodium 139 mmol/L (136-145)
[2022-06-30 16:30] LABS: Anion Gap 13.2 mEq/L (5-15); Blood Urea Nitrogen 45 mg/dl (9-20); Calcium 8.7 mg/dl (8.4-10.2); Carbon Dioxide 25 mmol/L (22.0-30.0); Estimated Glomerular Filt Rate 58 ml/min (>60); GFR (African American) 70 ML/MIN (>60); Glucose 186 mg/dl (74-100)
[2022-07-01 09:31] LABS: NT Pro Brain Natriuretic Pep. 2620 pg/mL (0-450)
== END ==
PROVIDERS: PCP Family Medicine; Visit Provider Physician Assistant
DX: E78.2 Mixed hyperlipidemia (principal); I11.0 Hypertensive heart disease with heart failure; I25.10 Atherosclerotic heart disease of native coronary artery without angina pectoris; I50.20 Unspecified systolic (congestive) heart failure; R06.02 Shortness of breath; R94.31 Abnormal electrocardiogram [ECG] [EKG]; Z87.891 Personal history of nicotine dependence
CPT/HCPCS: 36415; 80048; 83880

== ENCOUNTER → 2022-08-01 11:29 | Outpatient (CLI) | payer MEDICARE, BC, SELFPAY ==
[2022-07-31 17:55] LABS: Basophils # 0.1 K/mm3 (0-0.2); Basophils % 1.1 % (0.1-2.0); Eosinophils # 0.3 K/mm3 (0.0-0.4); Eosinophils % 7.1 % (0.1-12.0); Hematocrit 38.8 % (42.0-52.0); Hemoglobin 12.1 g/dL (14.1-18.0); Lymphocytes # 1.3 K/mm3 (0.7-4.5); Lymphocytes % 28.9 % (10-50); Mean Corpuscular HGB Conc 31.2 g/dL (31.8-35.4); Mean Corpuscular Hemoglobin 35.5 pg (27.0-31.2); Mean Platelet Volume 12.7 fl (7.4-10.4); Monocytes # 0.3 K/mm3 (0.1-1.0); Monocytes % 7.6 % (1.7-9.3); Neutrophils # 2.5 K/mm3 (1.8-7.8); Neutrophils % 55.4 % (37.0-80.0); Platelet Count 70 K/mm3 (142-424); Red Blood Count 3.41 M/mm3 (4.60-6.20); Red Cell Distribution Width 16.7 % (11.5-17.5); White Blood Count 4.4 K/mm3 (4.8-10.8)
[2022-07-31 18:01] LABS: Chol/HDL Ratio 2.7 (1-3.5); Cholesterol 132 mg/dl (140-200); HDL Cholesterol 49 mg/dl (40-60); Triglycerides 75 mg/dl (30-150); Uric Acid 3.9 mg/dl (3.5-8.5); VLDL Cholesterol 15 mg/dL (0-40)
[2022-07-31 18:11] LABS: NT Pro Brain Natriuretic Pep. 994 pg/mL (0-450)
[2022-07-31 18:13] LABS: Direct LDL Cholesterol 54.77 mg/dL (100-129)
[2022-07-31 18:32] LABS: Thyroid Stimulating Hormone 2.07 uIU/mL (0.465-4.68)
[2022-07-31 18:52] LABS: Vitamin B12 887 pg/mL (239-931)
[2022-07-31 19:43] LABS: 25-OH Vitamin D, Total 47.6 ng/mL (30-100)
[2022-08-01 12:11] LABS: INR 1.26 (0.9-1.1); Prothrombin Time 13.4 seconds (10.1-12.5)
[2022-08-02 08:16] LABS: AFP, Tumor Marker <0.9 ng/mL (0.0-6.4)
== END ==
PROVIDERS: PCP Nurse Practitioner; Visit Provider Nurse Practitioner
DX: E78.2 Mixed hyperlipidemia (principal); I25.10 Atherosclerotic heart disease of native coronary artery without angina pectoris; R06.02 Shortness of breath; E79.0 Hyperuricemia without signs of inflammatory arthritis and tophaceous disease; I10 Essential (primary) hypertension; G24.9 Dystonia, unspecified; K74.69 Other cirrhosis of liver
CPT/HCPCS: 36415; 80061; 82105; 82306; 82607; 83880; 84443; 84550; 85025; 85610

== ENCOUNTER → 2022-08-27 10:02 | Outpatient (CLI) | payer MEDICARE, BC, SELFPAY ==
--- NOTE | 2022-08-27 10:09 | CA_ITS ---
APPROVED REPORT EXAM: Comprehensive 2D, Doppler, and color-flow Echocardiogram Inspector Open Die: Masha Flores, RCS, RVS Ht: 5 ft 7 in Wt: 149lbs BSA: 1.78 BP: 100/64 mmHg Rhythm: Bradycardia Indications: Cardiac arryhtmia, WONG, Palpitations, PHTN, CAD, Hx-CHF, AI, MR, TR, PI 2D Dimensions IVSd 0.91 cm LVEF (Visual) 35.50 % PWd 1.04 cm LVDd 5.89 cm LVDs 4.87 cm Aortic Root 3.64 cm Left Atrium 3.25 cm LVOT 2.16 cm (M/F) 1.5-2.5 M-Mode Dimensions RVDd 2.66 cm (0.9-2.6) LA Diam 3.83 cm (1.9-4.0) LVDd 6.05 cm (3.5-5.7) Ao Diam 3.79 cm (2.0-3.7) LVDs 4.48 cm (3.5-5.7) IVSd 1.13 cm (0.6-1.1) PWd 1.05 cm (0.6-1.1) EF (Teich) 50.10% EPSs 2.10 cm FS 26.00% EDV (Teich) 183.40 mL TAPSE 2.42 (<1.7) ESV (Teich) 91.50 mL LV Diastology E Decel Time 297.00 (160-240 msec) E/A Ratio 0.68 MED E' 3.80 (< 7 cm/sec) MED A' 6.70 cm/s E'/MED E' Ratio 16.34 (>14) LAT E' 8.50 (<10 cm/sec) LAT A' 9.30 cm/s E/LAT E' Ratio 7.31 (>14) Aortic Valve AoV Peak Shahbaz. 237.00 (50-130 cm/s) AI PHT 944.00 ms AO Peak GR. 22.50 mmHg AO Mean GR. 11.40 (<5 mmHg) AO VTI 49.50 (18-25 cm) Mitral Valve MV A Velocity 92.00 (40-130 cm/s) E/A Ratio 0.68 MV Decel. Time 297.00 (160-240 ms) Pulmonary Valve PV Peak Velocity 119.00 (50-150 cm/s) ND End VMAX 212.00 cm/s Tricuspid Valve TR P. Velocity 314.00 cm/s RAP Estimate 10.00 mmHg RVSP 49.50 mmHg Left Ventricle Left atrium is mildly enlarged, left ventricle is normal size mild concentric left ventricular hypertrophy, estimated ejection fraction 40 to 45%, there is abnormal septal motion. Diastolic parameters are inconclusive. Right Ventricle Right atrium and right ventricle are mildly enlarged with normal contractility. Aortic Valve Aortic valve is thickened and calcified without aortic stenosis, there is mild aortic insufficiency. Mitral Valve Mitral valve is grossly normal, there is mild mitral regurgitation. Tricuspid Valve Tricuspid valve grossly normal, there is mild tricuspid regurgitation, calculated right ventricular systolic pressure is 49 mmHg. Pulmonic Valve Pulmonic valve is poorly visualized. Great Vessels Aortic root is normal size. Inferior vena cava is poorly visualized. 1. Mild biatrial enlargement, normal left ventricular size, Pericardium No significant pericardial effusion noted. Conclusion 1. Mild biatrial enlargement, normal left ventricular size, mild concentric left ventricular hypertrophy, estimated ejection fraction 40 to 45% with no regional wall motion abnormality, diastolic parameters are inconclusive. 2. Mildly enlarged right ventricle with normal contractility. 3. Mild aortic, mild mitral and tricuspid regurgitation, calculated right ventricular systolic pressure 49 mmHg. 4. No significant pericardial effusion. 5. Inferior vena cava is poorly visualized. Electronically signed by : Carson Roberson MD 08/29/2022 10:54:28
== END ==
PROVIDERS: PCP Nurse Practitioner; Visit Provider Internal Medicine Cardiovascular Disease
DX: E78.2 Mixed hyperlipidemia (principal); I25.10 Atherosclerotic heart disease of native coronary artery without angina pectoris; I50.20 Unspecified systolic (congestive) heart failure; R06.02 Shortness of breath; R94.31 Abnormal electrocardiogram [ECG] [EKG]; I11.0 Hypertensive heart disease with heart failure
CPT/HCPCS: 93306

== ENCOUNTER → 2022-09-17 14:47 | Outpatient (CLI) | payer MEDICARE, BC, SELFPAY ==
--- NOTE | 2022-09-17 14:51 | US_ITS ---
FINAL REPORT CLINICAL HISTORY: Dicoloration of BLE, previous smoker, bilateral claudication. FINDINGS: ANKLE-BRACHIAL PRESSURE INDICES Pressure indices are as follows: RIGHT LOWER EXTREMITY: Ankle-brachial pressure index: 1.1 Comments: Normal LEFT LOWER EXTREMITY: Ankle-brachial pressure index: 1.2 Comments: Normal CONCLUSION: No evidence of significant obstructive peripheral vascular disease of the lower extremities Reviewed, Interpreted and Dictated by Palmer Tavarez III, MD Transcribed by Dariela Chapman Authenticated and [facility]
== END ==
PROVIDERS: PCP Family Medicine; Visit Provider Family Medicine
DX: I73.9 Peripheral vascular disease, unspecified (principal)
CPT/HCPCS: 93923

== ENCOUNTER 2022-09-18 10:14 | Day surgery (SDC) | payer MEDICARE, BC, SELFPAY ==
[2022-09-11 13:50] VITALS: BMI 27.4
[2022-09-18 10:31] VITALS: BP 129/72; PULSE 54; RESP 18; TEMP 35.5; O2SAT 96
--- NOTE | 2022-09-18 11:36 | P.PN_ITS ---
[facility] Disclaimer: The information contained in this section may have been updated after the patient was seen, as this information can be updated by other users. Medical History Coronary artery disease Dyskinesia Dyspnea Former smoker Frequent falls History of GI bleed HLD (hyperlipidemia) HTN (hypertension) Hx of hepatic disease Hyperuricemia Liver cirrhosis NYHA Class II cardiovascular function Palpitations Systolic heart failure Surgical History History of hernia surgery Family History Other Family history of heart disease No family history of diabetes mellitus Social History Smoking Status: Former smoker quit date: 07/07/02 alcohol intake: former substance use type: denies use current occupational status: retired Travel in the last 8 weeks: None household members: none housing: house lives independently: Yes education level: high school current occupational exposures/hazards: No caffeine: Yes special carlotta needs: No agree to transfusion: No do you feel safe at home: Yes victim of physical abuse: No victim of emotional abuse: No victim of sexual abuse: No would you like helpful sources: No [facility] Anesthesia Checklist Patient Identification Patient Identification: Arm Band and Verbal (Name & ) Structural Data Admitted From: Home Planned Operative Procedure/s: EGD Consent for Planned Operative Procedure(s) Verified: Yes Verified Documents: Surgical Consent NPO Status Verified Time NPO: 00:00 Airway Assessment C-Spine Mobility Assessed: Yes TMJ Mobility Assessed: Yes Neurological Assessment Level of Consciousness: Awake, Alert and Appropriate Anesthesia Plan Anesthesia Risk discussed: Yes ASA Class: III Anesthesia Type: MAC
[2022-09-18 11:41] VITALS: O2SAT 97
--- NOTE | 2022-09-18 11:48 | [facility].SCOPE ---
Procedure: Date: 09/18/22 Patient Date of :: 1940 Procedure Performed:: EGD & bx's Indications:: Cirrhosis Performing Provider:: Lu Nicolas MD Referring Provider:: Sammy Chan Sedation:: propofol Procedure:: The gastroscope was gently passed through the incisoral orifice into the oral cavity and under direct visualization the esophagus was intubated. The endoscope was passed down the esophagus, through the stomach, and into the duodenum. Color, texture, mucosa, and anatomy of the esophagus, stomach, and duodenum were carefully examined with the scope. Findings:: Oropharynx: normal Esophagus: normal, minimal grade 1 varices at most EG Junction: intact at 40 cm Cardia: normal Fundus: normal Body: Atrophic, biopsies obtained Antrum: normal Duodenal bulb: normal Duodenum (second and third portion): normal Impression: Atrophic gastritis, minimal esophageal varices Specimens:: gastric Recommendations:: Conservative outpatient therapy Complications:: None Estimated blood obtained (mL): 0
[2022-09-18 11:50] VITALS: BP 81/43; PULSE 67; RESP 17; TEMP 36.8; O2SAT 94
[2022-09-18 12:00] VITALS: BP 120/77; PULSE 64; RESP 16; O2SAT 100
[2022-09-18 12:10] VITALS: BP 125/53; PULSE 66; RESP 17; O2SAT 100
--- NOTE | 2022-09-18 12:20 | SUR.PHASEII ---
pt and family refused to stay and wait on doctor to talk to them. requested they go ahead and leave. md aware.
[2022-09-18 12:25] VITALS: BP 122/81; PULSE 70; RESP 17; O2SAT 98
== END 2022-09-18 12:25 | disposition home or self-care (01) ==
PROVIDERS: PCP Internal Medicine Cardiovascular Disease; Visit Provider Internal Medicine Gastroenterology
PROC: 0DJ08ZZ Inspection of Upper Intestinal Tract, Via Natural or Artificial Opening Endoscopic (ICD-10-PCS; CPT 43235; principal; 2022-09-18 10:30)
DX: K74.60 Unspecified cirrhosis of liver (principal); I85.10 Secondary esophageal varices without bleeding; Z79.899 Other long term (current) drug therapy; K29.40 Chronic atrophic gastritis without bleeding
CPT/HCPCS: 43239; 88305

== ENCOUNTER → 2022-10-17 11:00 | Outpatient (CLI) | payer MEDICARE, BC, SELFPAY ==
[2022-10-17 18:43] LABS: Reticulocyte % (Auto) 1.7 % (0.9-3.2)
[2022-10-17 21:25] LABS: Folate > 20.00 ng/mL
== END ==
PROVIDERS: PCP Family Medicine; Visit Provider Family Medicine
DX: D69.6 Thrombocytopenia, unspecified (principal)
CPT/HCPCS: 82746; 85044

== ENCOUNTER → 2022-10-31 14:39 | Outpatient (CLI) | payer MEDICARE, BC, SELFPAY | PROVIDERS: PCP Family Medicine; Visit Provider Internal Medicine Cardiovascular Disease | DX: R55 Syncope and collapse (principal); I25.10 Atherosclerotic heart disease of native coronary artery without angina pectoris | CPT/HCPCS: 93270 ==